=== PATIENT | female | born 1960 | race Hispanic/Latino ===

== ENCOUNTER → 2020-04-02 | Outpatient (CLI) | payer BC | END | disposition home or self-care (01) | LOC: RAH 08:43 | PROVIDERS: ATTEND Family Medicine | DX: K21.9 Gastro-esophageal reflux disease without esophagitis (principal) | CPT/HCPCS: 74240 ==

== ENCOUNTER → 2021-01-30 | Outpatient (CLI) | payer BC | END | disposition home or self-care (01) | LOC: RAH 14:07 | PROVIDERS: ATTEND Otolaryngology Plastic Surgery within the Head & Neck | DX: J32.8 Other chronic sinusitis (principal); R09.81 Nasal congestion | CPT/HCPCS: 70486 ==

== ENCOUNTER → 2022-08-05 | Outpatient (CLI) | payer BC | END | disposition home or self-care (01) | LOC: RAH 14:05 | PROVIDERS: ATTEND Internal Medicine | DX: R10.824 Left lower quadrant rebound abdominal tenderness (principal); D25.1 Intramural leiomyoma of uterus | CPT/HCPCS: 76856 ==

== ENCOUNTER → 2023-11-04 | Outpatient (CLI) | payer BC, MEDICARE | END | disposition home or self-care (01) | LOC: RAH 12:40 | PROVIDERS: ATTEND Family Medicine | DX: D25.9 Leiomyoma of uterus, unspecified (principal); N95.0 Postmenopausal bleeding | CPT/HCPCS: 76856 ==

== ENCOUNTER → 2025-03-07 | Outpatient (CLI) | payer MEDICARE ==
--- NOTE | 2025-03-11 09:49 | HMCIMG ---
DIGITAL BILATERAL SCREENING MAMMOGRAM Technique: The digital mammographic examination of both breasts in craniocaudal and mediolateral oblique views along with CAD was obtained. History: This is a 64 years year-old female for screening mammogram.. Patient has no family history of breast cancer. Patient has no complaint Reference:Prior mammogram from 04/01/2022, 2018, 06/29/2018 and 04/10/2016 are available for comparison.. Breast composition: Breast composition C: The breasts are heterogeneously dense, which may obscure small masses. Finding: The digital mammographic examination of both breasts in craniocaudal and mediolateral oblique view along with CAD demonstrates both breasts to be moderately heterogeneously nodular dense breasts. In the left breast and upper outer quadrant there is a round density measuring approximately 1.45 cm. Which was not seen on prior mammography. There is a solitary macrocalcification in the right left lower breast breast lower inner quadrant. There is also too microcalcification seen in the left breast upper outer quadrant. There is no evidence of any dendritic mass, cluster microcalcification or architectural distortion. The retromammary fat appears to be normal. IMPRESSION: Left breast there is a density with possible halo sign. I would recommend a coned-down compression view of the left breast and bilateral breast sonogram for further evaluation. FINAL ASSESSMENT: ACR: BI-RAD -0. Incomplete: need additional imaging evaluation. Management: Recall for additional imaging and/or comparison with prior examination(s). Likelihood of Cancer: N/A NOTE: IF A WORK-UP OF THIS PATIENT LEADS TO A BIOPSY, PLEASE FORWARD A COPY OF THE PATHOLOGY REPORT TO OUR OFFICE REQUIRED BY [employer]IL 03, 1994. A NEGATIVE MAMMOGRAM SHOULD NOT PRECLUDE BIOPSY OF A CLINICALLY PALPABLE SUSPICIOUS MASS, 10% OF BREAST CANCERS ARE MAMMOGRAPHICALLY OCCULT. THIS MAMMOGRAPHY FACILITY IS FULLY ACCREDITED BY THE FOOD AND DRUG ADMINISTRATION (FDA). THANK YOU FOR THIS REFERRAL.
--- NOTE | 2025-03-12 10:57 | HMCIMG ---
CLINICAL INDICATION: Asymptomatic menopausal state COMPARISON: None TECHNIQUE: Bone densitometry is performed of the lumbar spine and left hip. FINDINGS: Total BMD of lumbar spine is 0.765 g/cm2 with a T-score of -2.6 and Z-score is -0.7. Total BMD of left hip is 0.820 g/cm2 with a T-score of -1.1 and Z-score is 0.2. FRAX SCORE: The 10 year fracture risk for a major osteoporotic fracture and hip fracture not reported because some T-scores for spine total or hip total or femoral neck at or below -2.5 IMPRESSION: 1. Osteoporosis of the lumbar spine 2. Osteopenia of left hip 3. I would recommend follow-up DEXA in 13 months World Health Organization criteria for BMD interpretation classify patients as Normal (T-score at or above -1.0), Osteopenic (T-score between -1.0 and -2.5), or Osteoporotic (T-score at or below -2.5). FRAX SCORE: A. All treatment decisions require clinical judgment and consideration of individual patient factors, including patient preferences, comorbidities, previous drug use, risk factors not captured in the FRAX model (e.g., frailty, falls, vitamin D deficiency, increased bone turnover, interval significant decline in bone density) and possible obtqt-[id number]-[id number]-estimation of fracture risk by FRAX. B. In addition, the NOF Guide recommends that FDA-approved medical therapies be considered in postmenopausal women and men age greater than or equal to 50 years with a: i. Hip or vertebral (clinical or morphometric) fracture. ii. T-score of less than or equal to -2.5 at the spine or hip. iii. Ten-year fracture probability by FRAX of greater than or equal to 3% for hip fracture of greater than or equal to 20% for major osteoporotic fracture.
== END | disposition home or self-care (01) ==
LOC: RAH 12:17
PROVIDERS: ATTEND Family Medicine
DX: Z12.31 Encounter for screening mammogram for malignant neoplasm of breast (principal); N63.20 Unspecified lump in the left breast, unspecified quadrant; N63.10 Unspecified lump in the right breast, unspecified quadrant; M81.0 Age-related osteoporosis without current pathological fracture; M85.852 Other specified disorders of bone density and structure, left thigh; R92.333 Mammographic heterogeneous density, bilateral breasts; R92.0 Mammographic microcalcification found on diagnostic imaging of breast; Z78.0 Asymptomatic menopausal state
CPT/HCPCS: 77067; 77080

== ENCOUNTER → 2025-04-05 | Outpatient (CLI) | payer MEDICARE ==
--- NOTE | 2025-04-05 16:30 | HMCIMG ---
Left BREAST ULTRASOUND: Left: Real-time examination of the [right/left] breast demonstrates homogeneous echotexture throughout the breast. The left breast at 1:00 there is a 0.1 x 0.1 calcification. The left breast and subareolar region there is a cyst measuring 1.1 x 1.1 x 1.27. The left breast at 8:00 there is a calcification seen. Which measures 3 mm. At 11:00 there is a hypoechoic lesion measuring 0.3 x 0.4 cm. At 12:00 there is a hypoechoic lesion measuring 0.5 x 0.4 x 0.5 cm. The left axilla has a benign-appearing lymph node was measuring 0.7 x 0.7 cm. Second lymph node measuring 1.4 x 6 0.5 cm. The third lymph node measuring 0.5 x 0.4 cm. The fourth lymph node measuring 0.4 cm. IMPRESSION: Hypoechoic lesion seen in left breast at 11 and 12:00 is available for ultrasound-guided biopsy. FINAL ASSESSMENT: ACR: BI-RAD -4. Suspicious: Finding(s) without all the characteristics morphology of breast cancer but indicatingadefine probability of being malignant: biopsy should be considered.
== END | disposition home or self-care (01) ==
LOC: RAH 10:53
PROVIDERS: ATTEND Family Medicine
DX: R92.8 Other abnormal and inconclusive findings on diagnostic imaging of breast (principal)
CPT/HCPCS: 76641

== ENCOUNTER → 2025-05-14 | Outpatient (CLI) | payer MEDICARE ==
[2025-05-14 10:48] LABS: INR 0.96 (0.85-1.15)
--- NOTE | 2025-05-22 11:14 | HMCIMG ---
Left BREAST ULTRASOUND: Finding: Real-time examination of the left breast for possible biopsy. This was not performed due to very small lesion which is not seen on the ultrasound. I would recommend six-month follow-up. There is calcification seen in the left breast at 1:00.. IMPRESSION: Lesion for the ultrasound-guided biopsy was not performed due to not seen on the ultrasound I would recommend a six-month follow-up. FINAL ASSESSMENT: ACR: BI-RAD -3. Probably Benign - Short Interval Followup Suggested.
== END | disposition home or self-care (01) ==
LOC: RAH 09:40
PROVIDERS: ATTEND Family Medicine
DX: N63.25 Unspecified lump in the left breast, overlapping quadrants (principal); N63.22 Unspecified lump in the left breast, upper inner quadrant; R92.0 Mammographic microcalcification found on diagnostic imaging of breast; R92.8 Other abnormal and inconclusive findings on diagnostic imaging of breast; D58.2 Other hemoglobinopathies; R79.9 Abnormal finding of blood chemistry, unspecified
CPT/HCPCS: 36415; 76642; 85610; 85730